=== PATIENT | female | born 1990 | race Asian ===

== ENCOUNTER → 2019-03-24 | Outpatient (CLI) | payer OTHER | END | disposition home or self-care (01) | LOC: PRENATAL 13:30 | DX: O26.851 Spotting complicating pregnancy, first trimester (principal); O36.80X1 Pregnancy with inconclusive fetal viability, fetus 1; O44.01 Complete placenta previa NOS or without hemorrhage, first trimester ==

== ENCOUNTER → 2019-06-10 | Outpatient (CLI) | payer OTHER | END | disposition home or self-care (01) | LOC: PRENATAL 13:00 | DX: O35.3XX1 Maternal care for (suspected) damage to fetus from viral disease in mother, fetus 1 (principal); Z36.0 Encounter for antenatal screening for chromosomal anomalies ==

== ENCOUNTER 2019-09-24 12:39 | Inpatient (IN) | payer OTHER ==
[~2019-09-24] VITALS: Ht 165.1 cm; Wt 72.6 kg
[2019-09-26] MEDS ORDERED: ACETAMINOPHEN325 M1 PO (13:24)
[2019-09-26] MEDS ORDERED: PREPLUS CA-FE1 EACH PO (13:25)
[2019-09-26] MEDS ORDERED: IBUPROFEN400 MG PO (13:26)
== END 2019-09-26 14:16 | disposition home or self-care (01) | DRG 807 ==
LOC: LDR 12:39 → OB/GYN 16:25
PROVIDERS: ADMIT Obstetrics & Gynecology
PROC: 10E0XZZ Delivery of Products of Conception, External Approach (ICD-10-PCS; principal; 2019-09-24)
PROC: 10907ZC Drainage of Amniotic Fluid, Therapeutic from Products of Conception, Via Natural or Artificial Opening (ICD-10-PCS; 2019-09-24)
PROC: 0W8NXZZ Division of Female Perineum, External Approach (ICD-10-PCS; 2019-09-24)
PROC: 4A1HXCZ Monitoring of Products of Conception, Cardiac Rate, External Approach (ICD-10-PCS; 2019-09-24)
DX: O80 Encounter for full-term uncomplicated delivery (principal); Z37.0 Single live birth; Z3A.38 38 weeks gestation of pregnancy